=== PATIENT | female | born 1950 | race Caucasian/White ===

== ENCOUNTER 2017-05-09 07:33 | Inpatient (IN) | payer OTHER ==
[~2017-05-09] VITALS: Ht 167.6 cm; Wt 73.5 kg
[2017-05-09] MEDS ORDERED: ACETAMINOPHEN 500 MG TABLET PO ONE (07:45)
[2017-05-09] MEDS ORDERED: TRANEXAMIC ACID 650 MG TABLET PO ONE (07:45)
[2017-05-09] MEDS ORDERED: oxyCODONE HCL 10 MG TAB.ER.12H PO ONE ×2 (07:45→08:11)
[2017-05-09] MEDS ORDERED: GABAPENTIN 300 MG CAPSULE PO ONE (07:45)
[2017-05-09] MEDS ORDERED: CEFAZOLIN SOD 2 GM in D5W 50 ML IV ONE (07:45)
[2017-05-09] MEDS ORDERED: CELECOXIB 200 MG CAPSULE PO ONE (07:45)
[2017-05-09] MEDS ORDERED: CELECOXIB 200 MG CAPSULE ONE (08:07)
[2017-05-09] MEDS ORDERED: ACETAMINOPHEN 500 MG TABLET ONE (08:10)
[2017-05-09] MEDS ORDERED: TRANEXAMIC ACID 650 MG TABLET ONE (08:11)
[2017-05-09] MEDS ORDERED: GABAPENTIN 300 MG CAPSULE ONE (08:11)
[2017-05-09] MEDS ORDERED: KETOROLAC TROMETHAMINE 30 MG VIAL ONE (09:07)
[2017-05-09] MEDS ORDERED: POLYMYXIN 500,000/BACIT.10,000 UNITS in NS IRR 1 L IR ONE (09:43)
[2017-05-09] MEDS ORDERED: KETOROLAC TROMETHAMINE 30 MG VIAL IVP PRN (09:45)
[2017-05-09] MEDS ORDERED: DIPHENHYDRAMINE HCL 25 MG CAPSULE PO PRN (09:45)
[2017-05-09] MEDS ORDERED: ONDANSETRON HCL 4 MG/2 ML VIAL IVP PRN ×3 (09:45→10:45)
[2017-05-09] MEDS ORDERED: oxyCODONE HCL 5 MG TABLET PO PRN (09:45)
[2017-05-09] MEDS ORDERED: HYDROcodone/ACETAMIN 7.5-325 MG TAB PO PRN (09:45)
[2017-05-09] MEDS ORDERED: KETOROLAC TROMETHAMINE 15 MG VIAL IVP PRN (09:45)
[2017-05-09] MEDS ORDERED: SENNOSIDES 8.6 MG TABLET PO PRN (09:45)
[2017-05-09] MEDS ORDERED: MORPHINE 4 MG/ML INJ. SYRINGE IVP PRN (09:45)
[2017-05-09] MEDS ORDERED: PROMETHAZINE HCL 25 MG/ML AMP IVP PRN (09:45)
[2017-05-09] MEDS ORDERED: ROPIVACAINE 0.2% (NAROPIN) PF SOLUTION 100 ML BOTTLE EP ONE (09:56)
[2017-05-09] MEDS ORDERED: PROPOFOL 200MG/ 20ML VIAL (DIPRIVAN) IV ONE (09:56)
[2017-05-09] MEDS ORDERED: ROPIVACAINE HCL/PF 5 MG/ML 0.5% 30 ML VIAL INJ ONE (09:56)
[2017-05-09] MEDS ORDERED: MORPHINE SULFATE 10MG/10ML PF AMP EP ONE (09:56)
[2017-05-09] MEDS ORDERED: CEFAZOLIN 2 GM IVPB PREMIX 50 ML IV ONE (09:56)
[2017-05-09] MEDS ORDERED: EPINEPHrine 1 MG/ML AMP IVP ONE (09:56)
[2017-05-09] MEDS ORDERED: SEVOFLURANE 15 MIN GAS INH ONE (09:56)
[2017-05-09] MEDS ORDERED: KETOROLAC TROMETHAMINE 30 MG VIAL IVP ONE (09:56)
[2017-05-09] MEDS ORDERED: LR 1,000 ML IV.SOLN IV ONE (09:56)
[2017-05-09] MEDS ORDERED: NS 100 ML BAG IV ONE (09:56)
[2017-05-09] MEDS ORDERED: fentaNYL CITRATE/PF 100 MCG/2 ML AMP IVP ONE (09:56)
[2017-05-09] MEDS ORDERED: TRANEXAMIC ACID 1,000 MG/10 ML VIAL IV ONE (09:56)
[2017-05-09] MEDS ORDERED: ONDANSETRON HCL 4 MG/2 ML VIAL IVP ONE (09:56)
[2017-05-09] MEDS ORDERED: MIDAZOLAM HCL 5 MG/5 ML VIAL IVP ONE (09:56)
[2017-05-09] MEDS ORDERED: VANCOMYCIN HCL 1000 MG/VIAL IV ONE (09:56)
[2017-05-09] MEDS ORDERED: EZET10TA PO (09:59)
[2017-05-09] MEDS ORDERED: ATEN50TA PO (09:59)
[2017-05-09] MEDS ORDERED: AMLO5TAB92 PO (09:59)
[2017-05-09] MEDS ORDERED: HYDR25TA4 PO (09:59)
[2017-05-09] MEDS ORDERED: RIVAROXABAN 10 MG TABLET PO SCH ×2 (10:00→18:45)
[2017-05-09] MEDS ORDERED: LR 1,000 ML IV SCH (10:38)
[2017-05-09] MEDS ORDERED: MEPERIDINE HCL/PF 25 MG/ML DISP.SYRIN IVP PRN ×2 (10:45)
[2017-05-09] MEDS ORDERED: HYDROmorphone 2 MG/ML VIAL IVP PRN ×2 (10:45)
[2017-05-09] MEDS ORDERED: DIPHENHYDRAMINE INJ 50 MG/ML VIAL IVP PRN (10:45)
[2017-05-09] MEDS ORDERED: HYDROmorphone 1 MG INJ. 1 MG/ML AMPUL IVP PRN ×2 (10:45)
[2017-05-09] MEDS ORDERED: NALBUPHINE HCL 10 MG/ML AMP IVP PRN (10:45)
[2017-05-09] MEDS: ROPIVACAINE 0.2% 100 ML INJ SCH ×2 (12:25→23:10)
[2017-05-09] MEDS ORDERED: MEPERIDINE HCL/PF 25 MG/ML DISP.SYRIN ONE (12:49)
[2017-05-09 13:45] VITALS: BP_SYST 135
--- NOTE | 2017-05-09 13:52 | NUR ---
post admission notes: patient received in room 124A,report given by sly pacu nurse.patient drowsy but arousable,then went back to sleep.on o2 2l/nc,good saturation.ivf at right wrist intact. right knee dressing dry and intact.polar ice care attached to right knee.saul bandage wrapped from left leg down to lower leg,showing the toes,positive pulses and good circulation. vela draining to yellow urine. with hemovac,reddish color in the container.on q pump at 8cc/h. routine post op vital signs taken,afebrile.continue to monitor.
--- NOTE | 2017-05-09 14:01 | NUR ---
tele: placed on telemetry.
[2017-05-09] MEDS: ACETAMINOPHEN 500 MG TABLET PO SCH ×2 (15:00→21:00)
--- NOTE | 2017-05-09 15:02 | NUR ---
rounds: lowered down patient's head part,cpm back on.patient feels better,no nausea/vomiting. continue to monitor.
--- NOTE | 2017-05-09 15:08 | NUR ---
MED MANAGE CONSULT CALLED Consult was called, LYDIA BENITEZ P/O Med Man[facility]
[2017-05-09] MEDS: CEFAZOLIN 1 GM IVPB PREMIX 50 ML IV SCH ×2 (15:18→21:17)
[2017-05-09 15:21] VITALS: BP_SYST 120
--- NOTE | 2017-05-09 16:17 | NUR ---
rounds: sleeping during rounds but arousable. daughter at bedside. no distress. cpm on at 50 degrees angle.
--- NOTE | 2017-05-09 17:58 | NUR ---
PAGED DR KISER [phone] LYDIA Moore
--- NOTE | 2017-05-09 18:50 | NUR ---
closing notes: family at bedside.patient started dinner already. denies any pain.right knee dressing intact. vela in situ.Q pump on going at 6cc/h,pain controlled per patient.neuro landa with in normal limit. continue to monitor.
--- NOTE | 2017-05-09 18:52 | NUR ---
xarelto: verified orders with dr ackerman with orders changed time for xarelto 10mg po every 6pm daily and one dose now.
[2017-05-09] MEDS ORDERED: RIVAROXABAN 10 MG TABLET PO ONE (19:00)
[2017-05-09] MEDS: D5LR 1,000 ML IV SCH ×2 (19:03→19:38)
--- NOTE | 2017-05-09 19:35 | NUR ---
PM SHIFT ASSESSMENT RECEIVED PATIENT IN BED, AOX4, S/P RIGHT TKA THIS AM. ON O2 2L NC, NO SOB NOTED. PATIENT'S VITAL SIGNS STABLE. DENIES ANY PAIN OR DISCOMFORT AT THIS TIME. IV LINE TO LEFT HAND INTACT AND PATENT, IVF INFUSING. RIGHT KNEE WITH DRESSING, POLAR CARE AND CPM IN PLACE. NEUROVASCULAR CHECK DONE TO BLE. WNL. HEMOVAC TO RIGHT KNEE DRAINING. SILVERIO CATHETER SECURED AND TO GRAVITY,DRAINING YELLOW URINE. PATIENT EDUCATED ON USE OF INCENTIVE SPIROMETER, ABLE TO INSPIRE UP TO 1500 ML. POC DISCUSSED WITH PATIENT AND DAUGHTER AT BEDSIDE, BOTH VERBALIZED UNDERSTANDING, COMPLIANT. ORIENTED TO USE CALL LIGHT FOR NURSE ASSISTANCE, LIGHT WITHIN REACH, SAFETY MEASURES IN PLACE, WILL MONITOR. Addendum: 05/10/17 at 0033 by Ina Butler RN PATIENT HAS Q PUMP INFUSING AT 8 ML/HR.
[2017-05-09 20:00] VITALS: BP_SYST 120
[2017-05-09] MEDS: CELECOXIB 200 MG CAPSULE PO SCH (21:16)
[2017-05-09] MEDS: GABAPENTIN 300 MG CAPSULE PO SCH (21:16)
--- NOTE | 2017-05-09 21:56 | NUR ---
RN ROUNDS PATIENT RESTING QUIETLY, NO SIGN OF DISTRESS NOTED, DUE MEDICATIONS ADMINISTERED. PATIENT REPOSITIONED FOR COMFORT. CALL LIGHT WITHIN REACH, WILL MONITOR.
--- NOTE | 2017-05-09 22:44 | NUR ---
CPM CPM MACHINE REMOVED TO RIGHT KNEE, PATIENT RIGHT HEEL ELEVATED WITH PILLOW SUPPORT. PATIENT TOLERATED WELL, DENIES ANY PAIN AT THIS TIME. REPOSITIONED FOR COMFORT.
--- NOTE | 2017-05-10 00:03 | NUR ---
RN ROUNDS PATIENT SLEEPING, RESPIRATIONS EVEN AND UNLABORED, VITAL SIGNS STABLE. IVF INFUSING. CALL LIGHT REMAINS WITHIN REACH, WILL CONTINUE TO MONITOR.
[2017-05-10 00:27] VITALS: BP_SYST 131
--- NOTE | 2017-05-10 02:11 | NUR ---
RN ROUNDS PATIENT SLEEPING, RESPIRATIONS EVEN AND UNLABORED, REMAINS ON O2 2L NC. SAFETY MEASURES IN PLACE. CALL LIGHT WITHIN REACH, WILL CONTINUE TO MONITOR.
--- NOTE | 2017-05-10 04:18 | NUR ---
RN ROUNDS PATIENT ASLEEP RESPIRATIONS EVEN AND UNLABORED, REMAINS ON O2 2L NC. VITAL SIGNS STABLE. IVF INFUSING. RIGHT HEEL ELEVATED WITH PILLOW SUPPORT. SAFETY MEASURES IN PLACE. CALL LIGHT WITHIN REACH, WILL MONITOR.
[2017-05-10] MEDS: CEFAZOLIN 1 GM IVPB PREMIX 50 ML IV SCH (05:31)
[2017-05-10] MEDS: D5LR 1,000 ML IV SCH (05:31)
[2017-05-10 05:39] VITALS: BP_SYST 134
--- NOTE | 2017-05-10 06:27 | NUR ---
RN ROUNDS PATIENT RESTING QUIETLY, DUE ANTIBIOTICS ADMINISTERED. RIGHT HEEL REMAINS ELEVATED WITH PILLOW SUPPORT. HEMOVAC DRAINED, 50 ML OUTPUT NOTED. PATIENT NEEDS ATTENDED THROUGH OUT SHIFT. SAFETY MEASURES MAINTAINED. CALL LIGHT WITHIN REACH, WILL CONTINUE TO MONITOR UNTIL REPORT GIVEN TO AM NURSE.
[2017-05-10 06:53] LABS: BASOPHILS % (AUTO) 0.3 % (0.0-2.0); EOSINOPHILS # (AUTO) 0.2 K/uL (0.0-0.4); EOSINOPHILS % (AUTO) 2.2 % (0.0-4.0); HEMATOCRIT 30.8 % (36-48); HEMOGLOBIN 10.2 g/dL (12.0-16.0); LYMPHOCYTES # (AUTO) 2.2 K/uL (1.0-5.5); LYMPHOCYTES % (AUTO) 25.1 % (20.5-51.5); MEAN CORPUSCULAR HEMOGLOBIN 30 pg (27-31); MEAN CORPUSCULAR HGB CONC 33 % (32-36); MEAN CORPUSCULAR VOLUME 91 fL (79.0-98.0); MONOCYTES # (AUTO) 0.7 K/uL (0.0-1.0); MONOCYTES % (AUTO) 7.5 % (1.7-9.3); NEUTROPHILS # (AUTO) 5.6 K/uL (1.8-7.7); NEUTROPHILS % (AUTO) 64.9 % (40.0-70.0); PLATELET COUNT (AUTO) 170 K/uL (130-430); RED BLOOD CELL COUNT(AUTO) 3.38 MIL/uL (4.2-6.2); RED CELL DISTRIBUTION WIDTH 12.3 % (9.0-15.0); WHITE BLOOD COUNT (AUTO) 8.7 K/uL (4.8-10.8)
[2017-05-10 07:06] LABS: CALCIUM 8.9 mg/dL (8.4-11.0); CREATININE 0.85 mg/dL (0.55-1.30); POTASSIUM 4.1 mmol/L (3.5-5.1)
--- NOTE | 2017-05-10 07:45 | NUR ---
am rounds: Patient awake lying on the bed. Cpm off. No pain this time.On Q pump running at 8cc/h intact. With hemovac ,reddish color discharges from the container. Right knee dressing dry and intact,polar care attached to it. Flynn draining to clear yellow urine. with left le scd's on.continue to monitor.
--- NOTE | 2017-05-10 08:55 | NUR ---
pain meds; c/o right knee post op pain,due po pain meds given prior to physical therapy.
[2017-05-10] MEDS: HYDROCHLOROTHIAZIDE 25 MG TABLET (HCTZ) PO SCH (08:56)
[2017-05-10] MEDS: CELECOXIB 200 MG CAPSULE PO SCH ×2 (08:56→21:00)
[2017-05-10] MEDS: ACETAMINOPHEN 500 MG TABLET PO SCH ×3 (08:57→21:00)
[2017-05-10] MEDS ORDERED: EZETIMIBE 10 MG TABLET PO SCH (09:00)
[2017-05-10] MEDS ORDERED: amLODIPine BESYLATE 5 MG TABLET PO SCH (09:00)
--- NOTE | 2017-05-10 09:09 | NUR ---
Nutrition Update Bryan Scale 18 noted. Pt admitted for advanced arthritis of the right knee. Diet: regular BMI: 26.1 kg/m2 RD to follow per nutrition care standards.
--- NOTE | 2017-05-10 09:50 | NUR ---
rounds: Patient put back to bed after physical therapy due to low bp. rechecked bp 106/60 per physical therapist. Patient felt better this time.
--- NOTE | 2017-05-10 09:55 | NUR ---
hemovac: dr ackerman came and removed the hemovac per patient.
--- NOTE | 2017-05-10 11:51 | NUR ---
rounds: lying on the bed resting. with cpm on.q pump in placed running at 8cc/h. with vela draining to clear yellow urine. pain tolerable per patient.right knee dressing dry and intact,polar care attached to right knee.
[2017-05-10 12:00] VITALS: BP_SYST 126
[2017-05-10] MEDS: oxyCODONE HCL 5 MG TABLET PO PRN ×2 (13:12→22:01)
--- NOTE | 2017-05-10 13:13 | NUR ---
PAIN MEDS: PO PAIN MEDS GIVEN PRIOR TO PHYSICAL THERAPY PER PATIENT'S REQUEST.
--- NOTE | 2017-05-10 15:14 | NUR ---
ROUNDS: AWAKE,ALERT AND ORIENTED X4.CPM ON. DENIES PAIN,CONTROLLED WITH Q PUMP AT 8CC/H IN PLACED.
[2017-05-10 16:00] VITALS: BP_SYST 128
--- NOTE | 2017-05-10 17:05 | NUR ---
PHYSICAL THERAPY CO-SIGN The Physical Therapy Progress Notes documented by Security Operations Engineer have been reviewed. I CONCUR W/DOCTOR OF AUDIOLOGY NOTE; CONT PER TX PLAN Reviewed/Co-Signed by: Kim Lynn PT Documentation Done by: DARNELL REED DOCTOR OF AUDIOLOGY Addendum: 05/11/17 at 0740 by Kim Lynn PT Amended: Links added.
--- NOTE | 2017-05-10 17:09 | NUR ---
ROUNDS: PAIN CONTROLLED WITH Q PUMP AT 8CC/H, PER PATIENT. STABLE.
[2017-05-10] MEDS: ATENOLOL 50 MG TABLET (TENORMIN) PO SCH (17:49)
--- NOTE | 2017-05-10 17:56 | NUR ---
ROUNDS: PATIENT HAVING DINNER DURING ROUNDS. NO COMPLAINED MADE. NEEDS ATTENDED TO.
[2017-05-10] MEDS ORDERED: RIVAROXABAN 10 MG TABLET PO SCH (18:00)
--- NOTE | 2017-05-10 18:34 | NUR ---
END OF SHIFT: PATIENT JUST FINISHED DINNER. CPM ON. DENIES ANY PAIN ,CONTROLLED WITH Q PUMP AT 8CC/H.POLAR CARE ATTACHED TO RIGHT KNEE DRESSING DRY AND INTACT. SILVERIO IN SITU.NEEDS ATTENDED TO. IVF TO TKO,WELL TOLERATED THE DINNER. CALL LIGHT WITH IN REACH. STABLE.
--- NOTE | 2017-05-10 19:29 | NUR ---
PM SHIFT ASSESSMENT RECEIVED PATIENT SITTING UP IN BED, AOX4, 1ST POST OP DAY OF RIGHT TKA. VITAL SIGNS STABLE. DENIES ANY PAIN OR DISCOMFORT AT THIS TIME. IV LINE TO LEFT HAND INTACT AND PATENT, IVF KVO. RIGHT KNEE WITH DRESSING, POLAR CARE AND CPM IN PLACE. NEUROVASCULAR CHECK DONE TO BLE. WNL. Q PUMP INFUSING AT 8ML/HR. SILVERIO CATHETER SECURED AND TO GRAVITY, DRAINING YELLOW URINE. REINFORCED USE OF INCENTIVE SPIROMETER, PATIENT COMPLIANT. VERBALIZED UNDERSTANDING. POC DISCUSSED WITH PATIENT. ORIENTED TO USE CALL LIGHT FOR NURSE ASSISTANCE, LIGHT WITHIN REACH, SAFETY MEASURES IN PLACE, WILL MONITOR.
[2017-05-10 20:00] VITALS: BP_SYST 116
[2017-05-10] MEDS: GABAPENTIN 300 MG CAPSULE PO SCH (21:01)
--- NOTE | 2017-05-10 21:15 | NUR ---
RN ROUNDS PATIENT'S DUE MEDICATIONS ADMINISTERED. PATIENT REPOSITIONED FOR COMFORT. CALL LIGHT WITHIN REACH, WILL MONITOR.
--- NOTE | 2017-05-10 22:07 | NUR ---
CPM/PAIN PATIENT C/O OF PAIN FROM CPM. MACHINE REMOVED TO RIGHT KNEE, PATIENT RIGHT HEEL ELEVATED WITH PILLOW SUPPORT. PATIENT REPOSITIONED FOR COMFORT. MEDICATED WITH OXYCODONE 5M G1 TAB FOR PAIN MANAGEMENT. WILL REASSESS PATIENT SHORTLY.
--- NOTE | 2017-05-10 23:27 | NUR ---
RN ROUNDS PATIENT ASLEEP, RESPIRATIONS EVEN AND UNLABORED. VITAL SIGNS STABLE. CALL LIGHT WITHIN REACH, WILL CONTINUE TO MONITOR.
[2017-05-11] MEDS: ROPIVACAINE 0.2% 100 ML INJ SCH (00:10)
--- NOTE | 2017-05-11 00:58 | NUR ---
RN ROUNDS PATIENT CONTINUES TO SLEEP, RESPIRATIONS EVEN AND UNLABORED. SAFETY MEASURES IN PLACE. CALL LIGHT WITHIN REACH, WILL CONTINUE TO MONITOR.
--- NOTE | 2017-05-11 02:35 | NUR ---
RN ROUNDS PATIENT CONTINUES TO SLEEP, RESPIRATIONS EVEN AND UNLABORED. RIGHT HEEL ELEVATED WITH PILLOW SUPPORT. SAFETY MEASURES IN PLACE. CALL LIGHT WITHIN REACH, WILL MONITOR.
--- NOTE | 2017-05-11 04:14 | NUR ---
RN ROUNDS PATIENT RESTING QUIETLY, DENIES ANY PAIN. VITALS SIGNS STABLE. RIGHT HEEL REMAINS ELEVATED WITH PILLOW SUPPORT. SAFETY MEASURES IN PLACE. CALL LIGHT WITHIN REACH, WILL MONITOR.
[2017-05-11 04:20] VITALS: BP_SYST 130
--- NOTE | 2017-05-11 06:34 | NUR ---
RN ROUNDS PATIENT SLEEPING, RIGHT HEEL REMAINS ELEVATED WITH PILLOW SUPPORT. PATIENT NEEDS ATTENDED TO. SAFETY MEASURES MAINTAINED. CALL LIGHT WITHIN REACH, WILL MONITOR UNTIL REPORT GIVEN TO AM NURSE.
[2017-05-11 06:41] LABS: BASOPHILS % (AUTO) 0.4 % (0.0-2.0); EOSINOPHILS # (AUTO) 0.1 K/uL (0.0-0.4); EOSINOPHILS % (AUTO) 1.3 % (0.0-4.0); HEMATOCRIT 29.5 % (36-48); HEMOGLOBIN 9.9 g/dL (12.0-16.0); LYMPHOCYTES # (AUTO) 1.8 K/uL (1.0-5.5); LYMPHOCYTES % (AUTO) 22.9 % (20.5-51.5); MEAN CORPUSCULAR HEMOGLOBIN 31 pg (27-31); MEAN CORPUSCULAR HGB CONC 34 % (32-36); MEAN CORPUSCULAR VOLUME 93 fL (79.0-98.0); MONOCYTES # (AUTO) 0.6 K/uL (0.0-1.0); MONOCYTES % (AUTO) 8.4 % (1.7-9.3); NEUTROPHILS # (AUTO) 5.2 K/uL (1.8-7.7); PLATELET COUNT (AUTO) 161 K/uL (130-430); RED BLOOD CELL COUNT(AUTO) 3.17 MIL/uL (4.2-6.2); RED CELL DISTRIBUTION WIDTH 12.3 % (9.0-15.0); WHITE BLOOD COUNT (AUTO) 7.7 K/uL (4.8-10.8)
[2017-05-11 07:10] LABS: CALCIUM 8.9 mg/dL (8.4-11.0); CREATININE 0.92 mg/dL (0.55-1.30); POTASSIUM 4.2 mmol/L (3.5-5.1)
[2017-05-11 08:00] VITALS: BP_SYST 129
--- NOTE | 2017-05-11 08:00 | NUR ---
A/Ox4. No signs of distress noted. IV on left hand, #20, SL. On 2L NC, satting in the mid to high 90s%. Right knee covered with saul wrap, with polarcare. Call light in place, bed at lowest position, will continue to monitor.
[2017-05-11] MEDS: HYDROCHLOROTHIAZIDE 25 MG TABLET (HCTZ) PO SCH (08:02)
[2017-05-11] MEDS: CELECOXIB 200 MG CAPSULE PO SCH (08:02)
[2017-05-11] MEDS: ACETAMINOPHEN 500 MG TABLET PO SCH ×2 (08:06→14:24)
--- NOTE | 2017-05-11 09:58 | NUR ---
HCP/PA: Per LALA Hyman patient accepted [facility] pending bed assignment. RN to report [phone] [facility] [phone] on will call.
[2017-05-11 12:00] VITALS: BP_SYST 129
--- NOTE | 2017-05-11 12:00 | NUR ---
Patient is having lunch, no signs of distress noted.
[2017-05-11 13:01] VITALS: BP_SYST 135
--- NOTE | 2017-05-11 14:07 | NUR ---
PHYSICAL THERAPY CO-SIGN The Physical Therapy Progress Notes documented by Office Clerk have been reviewed. I CONCUR WITH AM/PM REPAIR WEAVER NOTES OF SOBIA HOLLINS REPAIR WEAVER AND DARNELL REED REPAIR WEAVER RESPECTIVELY Reviewed/Co-Signed by: Kim Lynn Documentation Done by:SOBIA HOLLINS PTA, DARNELL REED REPAIR WEAVER Addendum: 05/11/17 at 1409 by Kim Lynn PT Amended: Links added.
[2017-05-11] MEDS: ATENOLOL 50 MG TABLET (TENORMIN) PO SCH (14:25)
--- NOTE | 2017-05-11 15:13 | NUR ---
CONTENT SPECIALIST called and spoke with Yenni ([phone]), LAURA Babcock, regarding pt's order for discharge to SNF if ok with surgeon. Yenni states that pt has been cleared for discharge and transportation has been arranged for pt to [facility] in [place] at 1500.
--- NOTE | 2017-05-11 15:14 | NUR ---
D/C Patient Patient given medication reconciliation form and transfer instructions. Exit Care provided. Patient verbalized understanding. MD discussed with patient the results and treatment provided. Patient in stable condition, ID band removed. IV catheter kept per admitting nurse's request. Patient educated on pain management. All belongings sent with patient.
== END 2017-05-11 15:10 | DRG 470 ==
LOC: SMU 07:33 → STU 14:03
PROVIDERS: ADMIT Orthopaedic Surgery; ATTEND Orthopaedic Surgery
PROC: 0SRC0J9 Replacement of Right Knee Joint with Synthetic Substitute, Cemented, Open Approach (ICD-10-PCS; principal; 2017-05-09 09:45)
DX: M17.11 Unilateral primary osteoarthritis, right knee (principal); Z96.652 Presence of left artificial knee joint; I10 Essential (primary) hypertension; E78.5 Hyperlipidemia, unspecified; Z87.891 Personal history of nicotine dependence
CPT/HCPCS: 36415; 80048; 85025; 87081; 88305; 88311; 94010; 97110-GP; 97116-GP; 97530-GP; C1713; C1776; J0171; J0690; J1885; J2175; J2250; J2274; J2405; J2704; J2795; J3010; J3370; J3490; J7060; J7120

== ENCOUNTER 2023-08-02 05:30 | Day surgery (SDC) | payer OTHER ==
[~2023-08-02] VITALS: Ht 167.6 cm; Wt 76.2 kg
[~2023-08-02 05:30] MED LIST: AMLO5TAB92 PO; ATEN50TA PO; EZET10TA PO; HYDR25TA4 PO
[2023-08-02 06:20] VITALS: O2SAT 95
[2023-08-02] MEDS ORDERED: CEFAZOLIN SOD 2 GM in D5W 50 ML IV ONE (07:00)
[2023-08-02] MEDS ORDERED: PROPOFOL 200MG/ 20ML VIAL (DIPRIVAN) IV ONE (09:40)
[2023-08-02] MEDS ORDERED: DEXAMETHASONE SOD PHOSPHATE 4 MG/ML VIAL ONE (09:40)
[2023-08-02] MEDS ORDERED: SEVOFLURANE 15 MIN GAS INH ONE (09:40)
[2023-08-02] MEDS ORDERED: MEPERIDINE HCL/PF 100 MG/ML VIAL ONE (09:40)
[2023-08-02] MEDS ORDERED: fentaNYL CITRATE/PF 100 MCG/2 ML AMP ONE (09:40)
[2023-08-02] MEDS ORDERED: BUPIVACAINE /PF 0.25% 30 ML VIAL INJ ONE (09:40)
[2023-08-02] MEDS ORDERED: ONDANSETRON HCL 4 MG/2 ML VIAL IVP PRN (10:45)
[2023-08-02] MEDS ORDERED: METOCLOPRAMIDE HCL 10 MG/2 ML VIAL IVP PRN (10:45)
[2023-08-02] MEDS ORDERED: HYDROmorphone 1 MG/ML INJ. CARTRIDGE IVP PRN (10:45)
[2023-08-02] MEDS ORDERED: KETOROLAC TROMETHAMINE 30 MG VIAL IVP PRN (10:45)
[2023-08-02] MEDS ORDERED: LR 1,000 ML IV SCH (10:45)
[2023-08-02] MEDS ORDERED: MEPERIDINE HCL/PF 25 MG/ML DISP.SYRIN IVP PRN (10:45)
[2023-08-02] MEDS: HYDROmorphone 2 MG/ML VIAL ONE ×3 (12:21→12:41)
[2023-08-02] MEDS ORDERED: KETOROLAC TROMETHAMINE 30 MG VIAL ONE (12:30)
[2023-08-02] MEDS ORDERED: ACETAMINOPHEN I.V. 1000 MG 100 ML IV ONE ×2 (12:42→12:45)
[2023-08-02 15:50] VITALS: BP_SYST 146; PULSE 81; RESP 20
== END 2023-08-02 15:43 | disposition home or self-care (01) ==
LOC: SMU 05:30 → SDS 05:30
PROVIDERS: ATTEND Orthopaedic Surgery Sports Medicine
DX: S52.101A Unspecified fracture of upper end of right radius, initial encounter for closed fracture (principal); S52.501A Unspecified fracture of the lower end of right radius, initial encounter for closed fracture; I10 Essential (primary) hypertension; Z79.899 Other long term (current) drug therapy; X58.XXXA Exposure to other specified factors, initial encounter; Y93.89 Activity, other specified; Y92.89 Other specified places as the place of occurrence of the external cause; Y99.8 Other external cause status
CPT/HCPCS: 24666; 76000; 87081; 88305; 88311; 25609; 64415; J3490; J0690; J1100; J1885; J2704; J3010; J1170; J2175; J7060; J7120; C1769; C1713 ×6; J0131; C1776 ×2; 88304